=== PATIENT | female | born 1950 | race Caucasian/White ===

== ENCOUNTER 2018-09-13 09:47 | Emergency (ER) | payer MEDICARE, OTHER ==
[2018-09-13 10:09] VITALS: BP 154/88
[2018-09-13] MEDS ORDERED: Meclizine 12.5 MG Tab PO ONE (10:12)
--- NOTE | 2018-09-13 10:20 | EDM.PDOC ---
<Amada Feliciano R - Last Filed: 09/13/18 10:33> ED HPI GENERAL MEDICAL PROBLEM - General Chief Complaint: General Stated Complaint: DIZZY [id number] Time Seen by Provider: 09/13/18 10:10 - Related Data Allergies Allergy/AdvReac Type Severity Reaction Status Date / Time tobramycin Allergy Unknown Itching Verified 09/13/18 10:37 duloxetine HCl Allergy Diarrhea Verified 09/13/18 10:37 [From Cymbalta] Sulfa (Sulfonamide Allergy Cannot Verified 09/13/18 10:37 Antibiotics) Remember Home Meds: Home Meds Alendronate [Fosamax] 70 mg PO WEEKLY 12/29/15 [History] Caffeine [Awake] 1 tab PO DAILY 12/29/15 [History] Cholecalciferol (Vitamin D3) [Vitamin D3] 1,000 mg PO DAILY 12/29/15 [History] Hydrochlorothiazide 0.5 tab PO DAILY 12/29/15 [History] Lutein/Minerals/Vit A,C & E [Ocuvite] 1 tab PO DAILY 12/29/15 [History] Methylcellulose (with Sugar) [Citrucel] 454 gm PO ASDIRECTED 12/29/15 [History] Potassium Chloride [Klor-Con M20] 20 meq PO DAILY 12/29/15 [History] traMADol [Ultram] 50 - 100 mg PO DAILY PRN 12/29/15 [History] EKG INTERPRETATION EKG Date: 09/13/18 Time: 10:14 Rhythm: NSR Rate (Beats/Min): 95 [place]: Normal P-Wave: Present QRS: Normal ST-T: Normal QT: Normal Comparison: NA - No Prior EKG EKG Interpretation Comments: Normal sinus rhythm Course - Vital Signs Last Recorded V/S: Last Vital Signs Temp 36.6 C 09/13/18 09:50 Pulse 116 H 09/13/18 09:50 Resp 16 09/13/18 09:50 BP 154/88 H 09/13/18 09:50 Pulse Ox 99 09/13/18 09:50 Orthostatic Blood Pressure [ 117/93 Standing] Orthostatic Blood Pressure [ 134/79 Sitting] Orthostatic Blood Pressure [ 133/67 Supine] - Orders/Labs/Meds Orders: Active Orders 24 hr Category Date Time Status EKG 12 Lead [EKG Documentation Completion] [RC] URGENT Care 09/13/18 09:59 Active Orthostatic Vital Signs [RC] STAT Care 09/13/18 10:00 Active Labs: Laboratory Tests 09/13/18 09/13/18 09/13/18 Range/Units 10:14 10:14 10:25 WBC 8.5 (5.0-10.0) 10^3/uL RBC 5.44 H (4.2-5.4) 10^6/uL Hgb 16.5 H D (12.0-16.0) g/dL Hct 48.5 H (37.0-47.0) % MCV 89.2 (80-100) fL MCH 30.3 (27.0-34.0) pg MCHC 34.0 (33.0-35.0) g/dL Plt Count 339 (150-450) 10^3/uL Neut % (Auto) 67.2 (42.2-75.2) % Lymph % (Auto) 25.3 (20.5-50.1) % [place] % (Auto) 6.9 (2-8) % Eos % (Auto) 0.4 L (1.0-3.0) % Baso % (Auto) 0.2 (0.0-1.0) % Sodium 135 (135-145) mmol/L Potassium 3.5 L (3.6-5.0) mmol/L Chloride 98 L (101-111) mmol/L Carbon Dioxide 22.0 (21.0-31.0) mmol/L Anion Gap 18.5 BUN 15 (7-18) mg/dL Creatinine 1.2 (0.6-1.3) mg/dL Est Cr Clr Drug Dosing 34.33 mL/min Estimated GFR (MDRD) 45 BUN/Creatinine Ratio 12.50 Glucose 121 H (74-105) mg/dL Calcium 9.9 (8.4-10.2) mg/dl Total Bilirubin 0.9 (0.2-1.0) mg/dL AST 26 (10-42) IU/L ALT 17 (10-60) IU/L Alkaline Phosphatase 60 (42-121) IU/L Troponin I < 0.02 (0.00-0.02) ng/ml Total Protein 8.0 (6.7-8.2) g/dl Albumin 4.3 (3.2-5.5) g/dl Globulin 3.7 Albumin/Globulin Ratio 1.16 Urine Color Yellow (YELLOW) Urine Appearance Clear (CLEAR) Urine pH 6.0 (5.0-9.0) Ur Specific [place] 1.020 (1.005-1.030) Urine Protein Negative (NEGATIVE) Urine Glucose (UA) Negative (NEGATIVE) Urine Ketones Negative (NEGATIVE) Urine Occult Blood Small H (NEGATIVE) Urine Nitrite Negative (NEGATIVE) Urine Bilirubin Negative (NEGATIVE) Urine Urobilinogen 0.2 (0.2-1.0) mg/dL Ur Leukocyte Esterase Negative (NEGATIVE) Urine RBC 5-10 H /HPF Urine WBC 0-5 (0-5/HPF) /HPF Ur Epithelial Cells Moderate H /HPF Amorphous Sediment Few (0/HPF) /HPF Urine Bacteria Few (0-FEW/HPF) /HPF Hyaline Casts Few H /LPF Urine Mucus Many H /LPF Meds: Medications Discontinued Medications Generic Name Dose Route Start Last Admin Trade Name Freq PRN Reason Stop Dose Admin Meclizine HCl 25 mg 09/13/18 10:12 09/13/18 11:03 Antivert PO 09/13/18 10:13 25 mg ONETIME ONE Administration Departure - Departure Disposition: Home, Self-Care 01 Clinical Impression: BPPV (benign paroxysmal positional vertigo) Qualifiers: Laterality: left Qualified Code(s): H81.12 - Benign paroxysmal vertigo, left ear - Discharge Information Instructions: How to Perform the Cynthia Maneuver, Benign Positional Vertigo Forms: ED Department Discharge Additional Instructions: Home today. Try to not lay down flat until bedtime. Keep your head in the midline neutral position as shown in the ED. Meclizine, 1 tablet three times a day as needed for vertigo symptoms. RX given # 12. Caution with sedation no alcohol or driving while taking this medication. You may try the Eply maneuver at home with the instructions that were supplied. See physical therapy tomorrow for evaluation of BPPV and continued therapy for BPPV. Return to the ED if new or worsening symptoms. Follow up with primary care provider in the next 4-6 days if not improving sooner if worse. - My Orders Last 24 Hours: My Active Orders 09/13/18 09:59 EKG 12 Lead [EKG Documentation Completion] [RC] URGENT 09/13/18 10:00 Orthostatic Vital Signs [RC] STAT - Assessment/Plan Last 24 Hours: My Active Orders 09/13/18 09:59 EKG 12 Lead [EKG Documentation Completion] [RC] URGENT 09/13/18 10:00 Orthostatic Vital Signs [RC] STAT <Adalberto Castorena - Last Filed: 09/13/18 13:10> ED HPI GENERAL MEDICAL PROBLEM - General Source of Information: Reports: Patient History Limitations: Reports: No Limitations - History of Present Illness INITIAL COMMENTS - FREE TEXT/NARRATIVE: Comes emergency Department today with complaints of dizziness since yesterday. The patient had a rather abrupt onset of room spinning and unsteadiness yesterday. Gets worse when she lays down. It feels like the room is spinning even when she is laying still. She has no headache. No weakness no syncope no palpitations. No visual disturbances. No paresthesias. No change in the functionality of her upper or lower extremity. No chest pain palpitations shortness of breath or difficulty breathing. No fever no chills. No abdominal pain no nausea no vomiting. No black or tarry stools. No hematuria dysuria or urinary frequency. She's had no recent falls or trauma to her head. 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: Musculoskeletal History: Reports: Arthritis Neurological History: Reports: Migraines Psychiatric History: Reports: Depression Dermatologic History: Reports: Other (See Below) Other Dermatologic History: DRY SKIN - Infectious Disease History Infectious Disease History: Reports: Chicken Pox, Measles, Mumps - Past Surgical History Cardiovascular Surgical History: Reports: None Female Surgical History: Reports: Tubal Ligation, Other (See Below) Neurological Surgical History: Reports: None Musculoskeletal Surgical History: Reports: Other (See Below) Social & Family History - Family History Family Medical History: Noncontributory - Tobacco Use Smoking Status *Q: Never Smoker - Recreational Drug Use Recreational Drug Use: No - Living Situation & Occupation Living situation: Reports: , with Spouse Occupation: Employed ED ROS GENERAL - Review of Systems Review Of Systems: ROS reveals no pertinent complaints other than HPI. ED EXAM, GENERAL - Physical Exam Exam: See Below Exam Limited By: No Limitations General Appearance: Alert, WD/WN, No Apparent Distress Eye Exam: Bilateral Eye: EOMI, Normal Inspection, Nystagmus (She has about 5 beats a nystagmus on the right lateral gaze that is horizontal in nature and does arrest on its own. ), PERRL Ears: Normal External Exam, Normal Canal, Normal TMs Nose: Normal Inspection, Normal Mucosa Throat/Mouth: Normal Inspection, Normal Lips, Normal Teeth, Normal Oropharynx, Normal Voice, No Airway Compromise Head: Atraumatic, Normocephalic Neck: Normal Inspection, Supple, Non-Tender, Full Range of Motion, Other (no carotid bruit) Respiratory/Chest: No Respiratory Distress, Lungs Clear, Normal Breath Sounds, No Accessory Muscle Use, Chest Non-Tender Cardiovascular: Normal Peripheral Pulses, Regular Rate, Rhythm Peripheral Pulses: 2+: Radial (L), Radial (R) GI/Abdominal: Normal Bowel Sounds, Soft, Non-Tender Back Exam: Normal Inspection, Full Range of Motion Extremities: Normal Inspection, Normal Range of Motion, Normal Capillary Refill Neurological: Alert, Oriented, CN II-XII Intact, Normal Cognition, Normal Reflexes, No Motor/Sensory Deficits, Other (No ataxia. Positive [place]. Positve Dajuan-Hallpike to the left with severe return of symptoms and rotary nystagmus. ) Psychiatric: Normal Affect, Normal Mood Skin Exam: Warm, Dry, Intact, Normal Color, No Rash Course - Orders/Labs/Meds Labs: Laboratory Tests 09/13/18 09/13/18 09/13/18 Range/Units 10:14 10:14 10:25 WBC 8.5 (5.0-10.0) 10^3/uL RBC 5.44 H (4.2-5.4) 10^6/uL Hgb 16.5 H D (12.0-16.0) g/dL Hct 48.5 H (37.0-47.0) % MCV 89.2 (80-100) fL MCH 30.3 (27.0-34.0) pg MCHC 34.0 (33.0-35.0) g/dL Plt Count 339 (150-450) 10^3/uL Neut % (Auto) 67.2 (42.2-75.2) % Lymph % (Auto) 25.3 (20.5-50.1) % [place] % (Auto) 6.9 (2-8) % Eos % (Auto) 0.4 L (1.0-3.0) % Baso % (Auto) 0.2 (0.0-1.0) % Sodium 135 (135-145) mmol/L Potassium 3.5 L (3.6-5.0) mmol/L Chloride 98 L (101-111) mmol/L Carbon Dioxide 22.0 (21.0-31.0) mmol/L Anion Gap 18.5 BUN 15 (7-18) mg/dL Creatinine 1.2 (0.6-1.3) mg/dL Est Cr Clr Drug Dosing 34.33 mL/min Estimated GFR (MDRD) 45 BUN/Creatinine Ratio 12.50 Glucose 121 H (74-105) mg/dL Calcium 9.9 (8.4-10.2) mg/dl Total Bilirubin 0.9 (0.2-1.0) mg/dL AST 26 (10-42) IU/L ALT 17 (10-60) IU/L Alkaline Phosphatase 60 (42-121) IU/L Troponin I < 0.02 (0.00-0.02) ng/ml Total Protein 8.0 (6.7-8.2) g/dl Albumin 4.3 (3.2-5.5) g/dl Globulin 3.7 Albumin/Globulin Ratio 1.16 Urine Color Yellow (YELLOW) Urine Appearance Clear (CLEAR) Urine pH 6.0 (5.0-9.0) Ur Specific [place] 1.020 (1.005-1.030) Urine Protein Negative (NEGATIVE) Urine Glucose (UA) Negative (NEGATIVE) Urine Ketones Negative (NEGATIVE) Urine Occult Blood Small H (NEGATIVE) Urine Nitrite Negative (NEGATIVE) Urine Bilirubin Negative (NEGATIVE) Urine Urobilinogen 0.2 (0.2-1.0) mg/dL Ur Leukocyte Esterase Negative (NEGATIVE) Urine RBC 5-10 H /HPF Urine WBC 0-5 (0-5/HPF) /HPF Ur Epithelial Cells Moderate H /HPF Amorphous Sediment Few (0/HPF) /HPF Urine Bacteria Few (0-FEW/HPF) /HPF Hyaline Casts Few H /LPF Urine Mucus Many H /LPF - Radiology Interpretation Free Text/Narrative:: CT of the head per radiology no acute abnormality of the brain. 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 - Re-Assessments/Exams Free Text/Narrative Re-Assessment/Exam: 09/13/18 11:03 25 mg of meclizine given orally. EKG is unremarkable Laboratory evaluation is rather unremarkable as well to include troponin. She has a mildly elevated hemoglobin. This may be due to dehydration. 09/13/18 13:06 I reviewed the rather normal findings of her EKG laboratory evaluation and head scan with the patient. We did complete an Cynthia maneuver in the emergency department which greatly improved the patient's entomology. She still does have a small amount of the vertigo type symptoms but they're much improved. Sent home with some meclizine also instructions to complete the Cynthia maneuver and on her own if she would like. Primary mainstay of therapy for this is physical therapy. I will refer to physical therapy tomorrow for continued management of BPPV. Anything new or worse she is to return to the emergency department. Patient is comfortable with this plan and her questions are answered. Departure - Departure Time of Disposition: 11:55 - Assessment/Plan Assessment:: BPPV Plan: Home today. Try to not lay down flat until bedtime. Keep your head in the midline neutral position as shown in the ED. Meclizine, 1 tablet three times a day as needed for vertigo symptoms. RX given # 12. Caution with sedation no alcohol or driving while taking this medication. You may try the Eply maneuver at home with the instructions that were supplied. See physical therapy tomorrow for evaluation of BPPV and continued therapy for BPPV. Return to the ED if new or worsening symptoms. Follow up with primary care provider in the next 4-6 days if not improving sooner if worse.
[2018-09-13 10:42] LABS: ANION GAP 18.5; CHLORIDE,CL 98 mmol/L (101-111); SODIUM,NA 135 mmol/L (135-145)
[2018-09-13] MEDS ORDERED: Meclizine 12.5 MG Tab ONE (11:03)
== END 2018-09-13 12:08 | disposition home or self-care (01) ==
LOC: DL.ED 09:47
DX: H81.12 Benign paroxysmal vertigo, left ear (principal); I10 Essential (primary) hypertension; M19.90 Unspecified osteoarthritis, unspecified site; Z98.51 Tubal ligation status; Z88.2 Allergy status to sulfonamides; Z79.899 Other long term (current) drug therapy; Z88.1 Allergy status to other antibiotic agents; Z88.8 Allergy status to other drugs, medicaments and biological substances
CPT/HCPCS: 36415; 70450; 80053; 81001; 84484; 85025; 93005; 99284; A9270